=== PATIENT | female | born 1990 | race Two or more races ===

== ENCOUNTER 2016-11-08 21:24 | Observation (INO) | payer MEDICAID, OTHER ==
[2016-11-08 22:55] LABS: ABSOLUTE EOSINOPHILS # (AUTO) 0.2 10^3/uL (0.0-0.6); ABSOLUTE LYMPHOCYTES (AUTO) 3.2 10^3/uL (0.5-4.7); ABSOLUTE MONOCYTES (AUTO) 0.8 10^3/uL (0.1-1.4); ABSOLUTE NEUT (AUTO) 6.2 10^3/uL (1.7-8.2); BASOPHILS % (AUTO) 0.4 % (0-2); HEMATOCRIT 38.9 % (36.0-47.0); HEMOGLOBIN 12.8 g/dL (12.0-15.5); HGB HCT DIFFERENCE -0.5; LYMPHOCYTES % (AUTO) 30.9 % (13-45); MEAN CORPUSCULAR HEMOGLOBIN 30.8 pg (27.0-33.4); MEAN CORPUSCULAR HGB CONC 32.9 g/dL (32.0-36.0); MEAN CORPUSCULAR VOLUME 94 fl (80-97); MONOCYTES % (AUTO) 7.4 % (3-13); RED BLOOD COUNT 4.16 10^6/uL (3.72-5.28); RED CELL DISTRIBUTION WIDTH 12.4 % (11.5-14.0); SEGMENTED NEUTROPHILS % (AUTO) 59.3 % (42-78); WHITE BLOOD COUNT 10.4 10^3/uL (4.0-10.5)
[2016-11-08 23:00] LABS: APPEARANCE,URINE SLIGHTLY-CLOUDY; BILIRUBIN,URINE NEGATIVE (NEGATIVE); GLUCOSE, URINE NEGATIVE (NEGATIVE); KETONES,URINE NEGATIVE (NEGATIVE); LEUKOCYTE ESTERASE,URINE SMALL (NEGATIVE); NITRITE,URINE NEGATIVE (NEGATIVE); PROTEIN,URINE NEGATIVE (NEGATIVE); URINE SPECIFIC GRAVITY 1.018; UROBILINOGEN,URINE NEGATIVE mg/dL (<2.0)
[2016-11-08] MEDS ORDERED: ONDANSETRON 4 MG TAB.RAPDIS PO ONE (23:02)
--- NOTE | 2016-11-08 23:04 | ER Document Report ---
ED Medical Screen (RME) - General Chief Complaint: Abdominal Pain Stated Complaint: ABDOMINAL PAIN Time Seen by Provider: 11/08/16 23:02 Notes: 26-year-old female, chief complaint of worsening right lower quadrant pain since this morning, states she has had an ovarian cyst before and this does not feel the same, it is higher up, pain is worsened and now she is nauseated. She denies vomiting, fever, she had a normal bowel movement earlier, she denies vaginal discharge or bleeding. She is on Depo. TRAVEL OUTSIDE OF THE [place] IN LAST 30 DAYS: No - Related Data Allergies/Adverse Reactions: No Known Allergies Allergy (Verified 01/13/12 11:09) Past Medical History - Past Medical History Cardiac Medical History: Denies: Hx Coronary Artery Disease, Hx Heart Attack, Hx Hypertension Pulmonary Medical History: Denies: Hx Asthma, Hx Bronchitis, Hx COPD, Hx Pneumonia Neurological Medical History: Denies: Hx Cerebrovascular Accident, Hx Seizures Renal/ Medical History: Denies: Hx Peritoneal Dialysis Musculoskeltal Medical History: Reports Hx Arthritis - RA Past Surgical History: Denies: Hx Hysterectomy, Hx Pacemaker - Immunizations Hx Diphtheria, Pertussis, Tetanus Vaccination: Yes - 2003 Physical Exam - Vital signs Vitals: Temp Pulse Resp BP Pulse Ox 98.5 F 80 18 108/57 L 100 11/08/16 21:50 11/08/16 21:50 11/08/16 21:50 11/08/16 21:50 11/08/16 21:50 - Abdominal Tenderness: Tender - very tender in RLQ, less so in pelvic area, although limited by sitting position, Guarding Course - Re-evaluation Re-evalutation: 11/08/16 23:04 I have greeted and performed a rapid initial assessment of this patient. A comprehensive ED assessment and evaluation of the patient, analysis of test results and completion of the medical decision making process will be conducted by additional ED providers. - Vital Signs Vital signs: Temp Pulse Resp BP Pulse Ox 98.5 F 80 18 108/57 L 100 11/08/16 21:50 11/08/16 21:50 11/08/16 21:50 11/08/16 21:50 11/08/16 21:50 - Laboratory Result Diagrams: 11/08/16 22:40 11/08/16 22:40 Laboratory results interpreted by me: 11/08/16 22:40 Ur Leukocyte Esterase SMALL H
[2016-11-08 23:18] LABS: ALANINE AMINOTRANSFERASE 31 U/L (9-52); ALBUMIN 4.6 g/dL (3.5-5.0); ALKALINE PHOSPHATASE 60 U/L (38-126); ANION GAP 13 (5-19); ASPARTATE AMINO TRANSFERASE 18 U/L (14-36); BILIRUBIN,DIRECT 0.2 mg/dL (0.0-0.4); BILIRUBIN,TOTAL 0.8 mg/dL (0.2-1.3); BLOOD UREA NITROGEN 9 mg/dL (7-20); CALCIUM 10.6 mg/dL (8.4-10.2); CARBON DIOXIDE 21 mmol/L (22-30); CHLORIDE 108 mmol/L (98-107); CREATININE RESULT 0.57 mg/dL (0.52-1.25); GLUCOSE 83 mg/dL (75-110); LIPASE 32.3 U/L (23-300); POTASSIUM 3.7 mmol/L (3.6-5.0); SODIUM 141.8 mmol/L (137-145); TOTAL PROTEIN 8.1 g/dL (6.3-8.2)
[2016-11-09] MEDS ORDERED: NORMAL SALINE 1000 ML 1,000 ML IV ONE (01:32)
[2016-11-09] MEDS ORDERED: MORPHINE SULFATE 10 MG/ML INJ IV ONE ×2 (01:32→05:31)
--- NOTE | 2016-11-09 01:34 | ER Document Report ---
ED GI/ - General Chief Complaint: Abdominal Pain Stated Complaint: ABDOMINAL PAIN Time Seen by Provider: 11/08/16 23:02 Notes: Patient is a 26-year-old female that comes to the ED with chief complaint of worsening right lower quadrant pain since this morning, states she has had an ovarian cyst before and this does not feel the same, it is higher up, pain is worsened and now she is nauseated. Not able to eat since breakfast. She denies vomiting, fever, she had a normal bowel movement earlier, she denies vaginal discharge or bleeding. She is on Depo, takes no other meds. TRAVEL OUTSIDE OF THE [place] IN LAST 30 DAYS: No - Related Data Allergies/Adverse Reactions: No Known Allergies Allergy (Verified 01/13/12 11:09) Past Medical History - General Information source: Patient - Social History Smoking Status: Never Smoker Frequency of alcohol use: None Drug Abuse: None Lives with: Family Family History: Reviewed & Not Pertinent - Past Medical History Cardiac Medical History: Denies: Hx Coronary Artery Disease, Hx Heart Attack, Hx Hypertension Pulmonary Medical History: Denies: Hx Asthma, Hx Bronchitis, Hx COPD, Hx Pneumonia Neurological Medical History: Denies: Hx Cerebrovascular Accident, Hx Seizures Renal/ Medical History: Reports: Hx Ovarian Cysts. Denies: Hx Peritoneal Dialysis Musculoskeltal Medical History: Reports Hx Arthritis - RA Surgical Hx: Negative Past Surgical History: Denies: Hx Hysterectomy, Hx Pacemaker - Immunizations Hx Diphtheria, Pertussis, Tetanus Vaccination: Yes - 2003 Review of Systems - Review of Systems Constitutional: No symptoms reported EENT: No symptoms reported Cardiovascular: No symptoms reported Respiratory: No symptoms reported Gastrointestinal: See HPI Genitourinary: No symptoms reported Female Genitourinary: No symptoms reported Musculoskeletal: No symptoms reported Skin: No symptoms reported Hematologic/Lymphatic: No symptoms reported Neurological/Psychological: No symptoms reported Physical Exam - Vital signs Vitals: Temp Pulse Resp BP Pulse Ox 98.5 F 80 18 108/57 L 100 11/08/16 21:50 11/08/16 21:50 11/08/16 21:50 11/08/16 21:50 11/08/16 21:50 Interpretation: Normal - General General appearance: Anxious In distress: Mild - patient appears uncomfortable - HEENT Head: Normocephalic, Atraumatic Eyes: Normal Pupils: PERRL - Respiratory Respiratory status: No respiratory distress Chest status: Nontender Breath sounds: Normal Chest palpation: Normal - Cardiovascular Rhythm: Regular Heart sounds: Normal auscultation Murmur: No - Abdominal Inspection: Normal Distension: No distension Bowel sounds: Normal Tenderness: Tender, McBurney's point - Tender specifically at McBurney's point with guarding, the remaining abdomen is completely benign Organomegaly: No organomegaly - Back Back: Normal, Nontender. No: Tender, Vertebra tenderness - Extremities General upper extremity: Normal inspection, Nontender, Normal color, Normal ROM , Normal temperature General lower extremity: Normal inspection, Nontender, Normal color, Normal ROM , Normal temperature, Normal weight bearing. No: Citlalli's sign - Neurological Neuro grossly intact: Yes Cognition: Normal Orientation: AAOx4 Rydal Coma Scale Eye Opening: Spontaneous Hserri Coma Scale Verbal: Oriented Rydal Coma Scale Motor: Obeys Commands Sherri Coma Scale Total: 15 Speech: Normal Motor strength normal: LUE, RUE, LLE, RLE Sensory: Normal - Psychological Associated symptoms: Normal affect, Normal mood - Skin Skin Temperature: Warm Skin Moisture: Dry Skin Color: Normal Course - Re-evaluation Re-evalutation: On examination, presentation, and abdominal tenderness is very suggestive of acute appendicitis. Location does not appear to be ovarian cyst in nature. CAT scan was ordered from triage. CBC unremarkable, chemistry unremarkable, urine unremarkable. CT showing evidence for early acute appendicitis which is consistent with patient's presentation. Patient having more pain again, will be given another dose of morphine, Unasyn, IV fluids, kept n.p.o., will discuss with surgeon. Discussed with Dr. Castillo. 11/09/16 06:[address] 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 - Vital Signs Vital signs: Temp Pulse Resp BP Pulse Ox 98.5 F 80 16 93/51 L 99 11/08/16 21:50 11/08/16 21:50 11/09/16 07:16 11/09/16 07:15 11/09/16 07:16 - Laboratory Result Diagrams: 11/08/16 22:40 11/08/16 22:40 Laboratory results interpreted by me: 11/08/16 11/08/16 22:40 22:40 Chloride 108 H Carbon Dioxide 21 L Calcium 10.6 H Ur Leukocyte Esterase SMALL H Discharge - Discharge Clinical Impression: Right lower quadrant pain Acute appendicitis Qualifiers: Acute appendicitis type: other Qualified Code(s): K35.89 - Other acute appendicitis Disposition: ADMITTED INPATIENT Admitting Provider: Surgicalist Unit Admitted: Surgical Floor
--- NOTE | 2016-11-09 02:25 | RADIOLOGY REPORT (SQ) ---
EXAM DESCRIPTION: CT ABD/PELVIS WITH IV ORAL COMPLETED DATE/TIME: 11/09/2016 1:57 am REASON FOR STUDY: RLQ pain COMPARISON: CT abdomen and pelvis 09/04/2015. TECHNIQUE: CT scan of the abdomen and pelvis performed using helical scanning technique with dynamic intravenous contrast injection and with oral contrast. Images reviewed with lung, soft tissue, and b one windows. Reconstructed coronal and sagittal MPR images reviewed. Delayed images for evaluation of the urinary system also acquired. All images stored on PACS. All CT scanners at this facility use dose modulation, iterative reconstruction, and/or weight based d osing when appropriate to reduce radiation dose to as low as reasonably achievable (ALARA). [facility]: Dose Right [facility]: CareDose [facility]: Dose Right [facility]: Teradose 4D [facility]: Pixowl CONTRAST TYPE AND DOSE: contrast/concentration: Isovue 370.00 mg/ml; Total Contrast Delivered: 58.0 ml; Total Saline Delivered: 55.0 ml RENAL FUNCTION: None required. The patient is less than 50 years old. RADIATION DOSE: Up-to-date CT equipment and radiation dose reduction techniques were employed. CTDIv ol: 5.2 mGy. DLP: 521 mGy-cm.. LIMITATIONS: None. FINDINGS: LOWER CHEST: No consolidation or pleural effusion. LIVER: Normal size. No masses. No dilated ducts. SPLEEN: Normal size. PANCREAS: No significant calcifications. No adjacent inflammation or peripancreatic fluid collections . Pancreatic duct not dilated. GALLBLADDER: No identified stones by CT criteria. No inflammatory changes to suggest cholecystitis. ADRENAL GLANDS: No significant masses or asymmetry. RIGHT KIDNEY AND URETER: No solid masses. No significant calcifications. No hydronephrosis or hyd roureter. LEFT KIDNEY AND URETER: No solid masses. No significant calcifications. No hydronephrosis or hydr oureter. AORTA AND VESSELS: No abdominal aortic aneurysm. RETROPERITONEUM: No retroperitoneal adenopathy, hemorrhage or masses. BOWEL AND PERITONEAL CAVITY: No small bowel obstruction, the oral contrast has reached the colon. No focal inflammatory changes. No free fluid or free air. APPENDIX: No oral contrast is seen in the appendix. The appendix is mildly dilated to 7 mm with mild periappendiceal soft tissue stranding. No fluid collection to suggest abscess formation at this leander e. PELVIS: The urinary bladder is decompressed. The uterus is present. No free fluid. ABDOMINAL WALL: No hernias. BONES: No acute findings. IMPRESSION: Mildly dilated appendix with mild periappendiceal inflammatory changes, suggestive of ea rly acute appendicitis. COMMENT: Pertinent findings on the imaging study reported as a CRITICAL RESULT to CARLOS YANEZ at 02:16 hrs on 11/09/2016. Category of Critical Result: Mildly dilated appendix with mild periappendiceal inflammatory changes, suggestive of early acute appendicitis. TECHNICAL DOCUMENTATION: JOB ID: [id number] AL-64 Quality ID # [id number]: Final reports with documentation of one or more dose reduction techniques (e.g., Au tomated exposure control, adjustment of the mA and/or kV according to patient size, use of iterative reconstruction technique) 2010 [employer]- All Rights Reserved
[2016-11-09] MEDS ORDERED: NORMAL SALINE 1000 ML 1,000 ML IV PRN (03:18)
[2016-11-09] MEDS ORDERED: AMPICILLIN SOD/SULBACTAM 3 GM VIAL IV ONE (03:18)
[2016-11-09] MEDS ORDERED: SUCCINYLCHOLINE CHLORIDE INJ 200 MG/10 ML VIAL ONE (09:01)
[2016-11-09] MEDS ORDERED: NEOSTIGMINE METHYLSULFATE 10 MG/10 ML VIAL ONE (09:01)
[2016-11-09] MEDS ORDERED: GLYCOPYRROLATE INJ 0.4 MG/2 ML VIAL ONE (09:01)
[2016-11-09] MEDS ORDERED: DEXAMETHASONE SOD PHOSPHATE INJ 4 MG/1 ML VIAL ONE (09:01)
[2016-11-09] MEDS ORDERED: ONDANSETRON HCL INJ/PF 4 MG/2 ML SDV ONE (09:01)
[2016-11-09] MEDS ORDERED: VECURONIUM BROMIDE INJ 10 MG VIAL IV ONE (09:01)
[2016-11-09] MEDS ORDERED: HYDROMORPHONE HCL INJ/PF 2 MG/ML AMPULE IV PRN (09:56)
--- NOTE | 2016-11-09 10:22 | PDOC H&P ---
History of Present Illness Admission Date/PCP: 11/09/16 06:33 Patient complains of: Right lower quadrant pain. History of Present Illness: CHRIS GUTIERREZ is a 26 year old femal e w sandy a on exam in the emergency room chief complaint of worsening right lower quadrant pain since this morning, states she has had an ovarian cyst before and this does not feel the same, it is higher up, pain is worsened and now she is nauseated. She denies vomiting, fever, she had a normal bowel movement earlier, she denies vaginal discharge or bleeding. On examination in the emergency room, she was found to have right lower quadrant tenderness and guarding. CT scan revealed early appendicitis, and surgical admission was recommended. Past Medical History Cardiac Medical History: Denies: Coronary Artery Disease, Myocardial Infarction, Hypertension Pulmonary Medical History: Denies: Asthma, Bronchitis, Chronic Obstructive Pulmonary Disease (COPD), Pneumonia Neurological Medical History: Denies: Seizures Musculoskeltal Medical History: Reports: Arthritis - RA Hematology: Denies: Anemia Past Surgical History Past Surgical History: Denies: Hysterectomy, Pacemaker Social History Lives with: Family Smoking Status: Never Smoker - Advance Directive Resuscitation Status: Full Code Family History Family History: Reviewed & Not Pertinent Parental Family History Reviewed: No Children Family History Reviewed: No Sibling(s) Family History Reviewed.: No Medication/Allergy Home Medications: No Home Medications 11/09/16 Allergies/Adverse Reactions: No Known Allergies Allergy (Verified 01/13/12 11:09) Physical Exam Vital Signs: Temp Pulse Resp BP Pulse Ox 98.3 F 50 L 16 100/52 L 100 11/09/16 08:06 11/09/16 08:06 11/09/16 08:06 11/09/16 08:06 11/09/16 08:06 General appearance: PRESENT: mild distress, thin, well-developed, well-nourished Head exam: PRESENT: atraumatic, normocephalic Eye exam: PRESENT: conjunctiva pink, EOMI, PERRLA Mouth exam: PRESENT: moist, neck supple, tongue midline Neck exam: PRESENT: full ROM, JVD, lymphadenopathy Respiratory exam: PRESENT: clear to auscultation sanjay, unlabored Cardiovascular exam: PRESENT: RRR GI/Abdominal exam: PRESENT: guarding, normal bowel sounds, soft, tenderness - In right lower quadrant Extremities exam: PRESENT: full ROM. ABSENT: calf tenderness Musculoskeletal exam: PRESENT: full ROM Skin exam: PRESENT: intact, warm Results Impressions: Abdomen/Pelvis CT 11/09/16 00:00 IMPRESSION: Mildly dilated appendix with mild periappendiceal inflammatory changes, suggestive of early acute appendicitis. Assessment & Plan - Diagnosis (1) Acute appendicitis Qualifiers: Acute appendicitis type: other Qualified Code(s): K35.89 - Other acute appendicitis - Plan Summary Plan Summary: Laparoscopic appendectomy will be performed today.
[2016-11-09] MEDS ORDERED: BUPIVACAINE HCL 0.5 % INJ/PF 30 ML SDV ONE (11:41)
[2016-11-09] MEDS ORDERED: MIDAZOLAM 2 MG/2 ML INJ ONE (11:43)
[2016-11-09] MEDS ORDERED: FENTANYL CITRATE INJ/PF 250 MCG/5 ML AMPULE ONE (11:44)
[2016-11-09] MEDS ORDERED: PROPOFOL INJ 200 MG/20 ML VIAL IV ONE (11:45)
[2016-11-09] MEDS ORDERED: MORPHINE SULFATE 10 MG/ML INJ ONE (11:46)
[2016-11-09] MEDS ORDERED: ONDANSETRON HCL INJ/PF 4 MG/2 ML SDV IV PRN (12:26)
[2016-11-09] MEDS ORDERED: MEPERIDINE HCL/PF INJ 25 MG/1 ML DISP.SYRIN IV PRN (12:26)
[2016-11-09] MEDS ORDERED: DIPHENHYDRAMINE HCL 50 MG/ML VIAL IV PRN (12:26)
[2016-11-09] MEDS ORDERED: FENTANYL CITRATE INJ/PF 100 MCG/2 ML AMPUL IV PRN ×3 (12:26)
[2016-11-09] MEDS ORDERED: MORPHINE SULFATE 10 MG/ML INJ IV PRN ×2 (12:26→14:32)
[2016-11-09] MEDS ORDERED: PROMETHAZINE HCL INJ 25 MG/1 ML VIAL IV PRN (12:26)
[2016-11-09] MEDS ORDERED: AMPICILLIN SOD/SULBACTAM 1.5 GM VIAL ONE (12:51)
--- NOTE | 2016-11-09 14:01 | Operative Report ---
Operative Report DATE OF SURGERY: 11/09/16 PREOPERATIVE DIAGNOSIS: Acute appendicitis POSTOPERATIVE DIAGNOSIS: Same OPERATION: laparoscopic appendectomy SURGEON: SOLEDAD JACKSON ANESTHESIA: Spinal TISSUE REMOVED OR ALTERED: Appendix. COMPLICATIONS: None ESTIMATED BLOOD LOSS: 1cc
[2016-11-09] MEDS: FENTANYL CITRATE INJ/PF 100 MCG/2 ML AMPUL ONE ×2 (14:08→14:13)
[2016-11-09] MEDS: MORPHINE SULFATE 10 MG/ML INJ ONE ×2 (14:43→14:48)
--- NOTE | 2016-11-09 14:48 | OPERATIVE REPORT E ---
Operative Report NAME: CHRIS GUTIERREZ : 1990 AGE: 26Y DATE OF SURGERY: 11/09/2016 ROOM: 209 PREOPERATIVE DIAGNOSIS: Acute appendicitis. POSTOPERATIVE DIAGNOSIS: Acute appendicitis. PROCEDURE: Laparoscopic appendectomy. SURGEON: SOLEDAD JACKSON M.D. ANESTHESIA: General. INTRAVENOUS FLUIDS: Crystalloid. DRAINS: None. COMPLICATIONS: None. CONDITION: Stable. FINDINGS: The patient had early appendicitis. DESCRIPTION OF PROCEDURE: The patient was brought to the operating suite and placed in the supine position on the operating room table. Monitoring devices were attached. IV sedation was administered followed by the induction of general endotracheal anesthesia. The patient's abdomen was prepped and draped in the usual sterile manner and then a timeout was achieved. After all concurred, Marcaine was injected just below the umbilicus and then a curvilinear incision was made just below the umbilicus through the skin and subcutaneous tissue down to the linea alba. Two 0-Vicryl stay sutures were placed on linea alba and an incision was made between the 2 stay sutures. We then grasped the peritoneum with 2 hemostats, an incision was made between the 2 and the peritoneal cavity was entered. Visual exploration was done to ensure that there were viscera adherent to the anterior abdominal wall and then the Filippo trocar was inserted and secured with two 0-Vicryl stay sutures. Laparoscopic light source and camera were inserted and no injury, bleeding, or trauma was noted. We then placed the 2 remaining trocars, 1 in the mid suprapubic region and 1 in the left lower quadrant, 5 mm each, and the full insufflation of the abdomen with CO2 was reached. We immediately identified the appendix, which had evidence of early appendicitis. An opening was made at the base of the appendix to isolate the mesoappendix. The endoscopic VIKTOR was then used to first amputate the appendix base at the cecum using roberto. We then reloaded the endoscopic VIKTOR with the vascular load and the mesoappendix was divided between the roberto. The appendix was then placed in the Endobag and removed from the abdominal cavity. We saw minimal bleeding from the appendiceal stump and this was cauterized. We irrigated the right lower quadrant and the cecal base with saline and after adequate hemostasis was assured, we removed all trocars under direct vision as we decompressed the abdomen. We then closed the infraumbilical incision using 0-Vicryl continuous suture to close the fascial defect and then, all skin incisions after trocar removal were closed with skin roberto. The patient tolerated the procedure well. Sponge and instrument count was correct and the patient was discharged to the PACU in a stable condition. DICTATING PHYSICIAN: SOLEDAD JACKSON M.D. [id number] PHY#: [id number] ID: [id number] JOB#: [id number] ACCT: [id number] cc:SOLEDAD JACKSON M.D. >
--- NOTE | 2016-11-09 17:32 | PDOC DISCHARGE SUMMARY ---
Discharge Summary (SDC) - Discharge Final Diagnosis: status post laparoscopic appendectomy for acute appendicitis. Date of Surgery: 11/09/16 Discharge Date: 11/09/16 Condition: Good Treatment or Instructions: Follow-up with [facility] in 7-10 days. No lifting, pulling, or pushing greater than 30 pounds, for 2 weeks[address] Do not drink or drive while taking pain medication. Prescriptions: Hydrocodone/Acetaminophen [Chilo 5-325 mg Tablet] 1 tab PO Q4HP PRN #20 tablet PRN Reason: For Pain Scale 4-5 Discharge Diet: Regular Discharge Activity: Activity As Tolerated, Balance Activity w/Rest, No Lifting/ Push/Pulling, Slowly Increase Activity Report the Following to Your Physician Immediately: Nausea, Vomiting, Increase in Pain, Fever over 101 Degrees, Unusual Bleeding, Redness, Swelling, Warmth, Increased Soreness, IV Site Infection Signs
[2016-11-09 17:41] VITALS: BP 101/77
== END 2016-11-09 18:50 | disposition home or self-care (01) ==
LOC: ER 21:24 → INTOOBSV 11-09 06:33 → EH 11-09 06:33 → 2N 11-09 08:01
PROC: 0DTJ4ZZ Resection of Appendix, Percutaneous Endoscopic Approach (ICD-10-PCS; principal; 2016-11-09 12:45)
DX: K35.80 Unspecified acute appendicitis (principal); Z87.42 Personal history of other diseases of the female genital tract
CPT/HCPCS: 96376; 99285; 96361; 96375; 96365; 36415; 83690; 85025; 81025; 80053; 81001; 88304 ×2; 74177; 44970; J2250; J1100; S0119; J3010 ×2; J0295 ×2; J3490; J2270; J1170; J0330; J2405; J7030; J2704; 840; G0378

== ENCOUNTER 2016-11-16 23:06 | Observation (INO) | payer MEDICAID ==
[2016-11-16] MEDS ORDERED: NORMAL SALINE 1000 ML 1,000 ML IV ONE (23:20)
--- NOTE | 2016-11-16 23:26 | ER Document Report ---
ED General - General Chief Complaint: Near Syncope Stated Complaint: POSSIBLE SYNCOPE Time Seen by Provider: 11/16/16 23:14 Notes: Patient is a 26-year-old female presents with complaint of passing out. She felt very unwell for like her heart was racing and felt short of breath. She felt dizzy and than passed out into her boyfriend's arms and than became pale and was not breathing according to the boyfried. When she was in the ambulance she felt that weight gain her heart rate went to 166. They did bring a rhythm strip which showed that she was in SVT. When they struck her for an IV and she would vagal down and broke out of the rhythm. She has no previous history of SVT. No chest pain. No fevers. She has a history of recent surgery for appendicitis. No family history of cardiac disease a young age. TRAVEL OUTSIDE OF THE [place] IN LAST 30 DAYS: No - Related Data Allergies/Adverse Reactions: No Known Allergies Allergy (Verified 01/13/12 11:09) Past Medical History - Social History Smoking Status: Never Smoker Frequency of alcohol use: None Drug Abuse: None Family History: Reviewed & Not Pertinent - Past Medical History Cardiac Medical History: Denies: Hx Coronary Artery Disease, Hx Heart Attack, Hx Hypertension Pulmonary Medical History: Denies: Hx Asthma, Hx Bronchitis, Hx COPD, Hx Pneumonia Neurological Medical History: Denies: Hx Cerebrovascular Accident, Hx Seizures Renal/ Medical History: Reports: Hx Ovarian Cysts. Denies: Hx Peritoneal Dialysis Musculoskeltal Medical History: Reports Hx Arthritis - RA Psychiatric Medical History: Denies: Hx Depression Past Surgical History: Denies: Hx Hysterectomy, Hx Pacemaker - Immunizations Hx Diphtheria, Pertussis, Tetanus Vaccination: Yes - 2003 Review of Systems - Review of Systems Notes: My Normal Review Basic REVIEW OF SYSTEMS: CONSTITUTIONAL : Denies fever, chills, or sweats. Denies recent illness. CARDIOVASCULAR: had some difficulty breathing. palpitations. SVT RESPIRATORY: Denies cough, cold, or chest congestion. Denies shortness of breath, difficulty breathing, or wheezing. GASTROINTESTINAL: recent appendectomy MUSCULOSKELETAL: Denies neck or back pain or joint pain or swelling. SKIN: Denies rash or skin lesions. NEUROLOGICAL: Denies altered mental status or loss of consciousness. Denies headache. Denies weakness or paralysis or loss of use of either side. Denies problems with gait or speech. Denies sensory or motor loss. ALL OTHER SYSTEMS REVIEWED AND NEGATIVE. Physical Exam - Vital signs Vitals: Temp Resp BP Pulse Ox 98.1 F 18 119/71 99 11/16/16 23:09 11/16/16 23:09 11/16/16 23:09 11/16/16 23:09 - Notes Notes: General Appearance: Well nourished, alert, cooperative, no acute distress, no obvious discomfort. Vitals: reviewed, See vital signs table. Head: no swelling or tenderness to the head Eyes: PERRL, EOMI, Conjuctiva clear Mouth: No decreasd moisture Neck: Supple, no neck tenderness, No thyromegaly Lungs: No wheezing, No rales, No rhonci, No accessory muscle use, good air exchange bilaterally. Heart: Normal rate, Regular rythm, No murmur, no rub Abdomen: Normal BS, soft, No rigidity, expected mild soreness to the abdomen being that she had recent abdominal surgery. No redness or erythema coming from postoperative surgical wound sites. Extremities: strength 5/5 in all extremities, good pulses in all extremities, no swelling or tenderness in the extremities, no edema. Skin: warm, dry, appropriate color, no rash Neuro: speech clear, oriented x 3, normal affect, responds appropriately to questions. Course - Re-evaluation Re-evalutation: 11/17/16 03:44 After the boyfriend arrived to get more history and therefore did change my HPI because the boyfriend now tells me that the patient did indeed fully syncopized and also became pale and was not breathing. This seems a little atypical than the typical initial SVT presentation that is typically benign. Typically people do not completely stop breathing. This may have just been her syncopal episode and he mistook her for shallow breathing. Mother concerned is that this is all induced shortly after having recent surgery. I did do a CTA which is negative for PE. I did speak with the hospitalist request a call and speak with the hydraulic rubbish compactor mechanic clinical rehabilitation liaison. I did call Dr. Quick who says that we can keep the patient here that we can admit for observation the patient and he would see her in the morning. I did speak with hospitalist, Dr. Slater who agrees to admit the patient. Dictation of this chart was performed using voice recognition software; therefore, there may be some unintended grammatical errors. - Vital Signs Vital signs: Temp Pulse Resp BP Pulse Ox 98.1 F 15 104/48 L 100 11/16/16 23:09 11/17/16 02:00 11/17/16 00:31 11/17/16 02:00 - Laboratory Result Diagrams: 11/16/16 23:44 11/16/16 23:44 Laboratory results interpreted by me: 11/16/16 11/16/16 23:44 23:44 RBC 3.33 L Hgb 10.4 L Hct 30.6 L Potassium 3.4 L Chloride 110 H - EKG Interpretation by Me Additional EKG results interpreted by me: 11/16/16 23:27 EKG is reviewed and interpreted by me. EKG shows sinus tachycardia with a rate of [address] segment elevation. Slight ST segment depression in inferior leads and lateral precordial leads. Patient does have a incomplete right bundle branch block. OK interval and QTc intervals are within normal range. QRS duration is prolonged. Discharge - Discharge Clinical Impression: SVT (supraventricular tachycardia) Syncope Qualifiers: Syncope type: unspecified Qualified Code(s): R55 - Syncope and collapse Condition: Stable Disposition: ADMITTED OBSERVATION Admitting Provider: Hospitalist
[2016-11-16 23:57] LABS: ABSOLUTE EOSINOPHILS # (AUTO) 0.2 10^3/uL (0.0-0.6); ABSOLUTE LYMPHOCYTES (AUTO) 3.1 10^3/uL (0.5-4.7); ABSOLUTE MONOCYTES (AUTO) 0.8 10^3/uL (0.1-1.4); BASOPHILS % (AUTO) 0.6 % (0-2); EOSINOPHILS % (AUTO) 2.7 % (0-6); HEMATOCRIT 30.6 % (36.0-47.0); HEMOGLOBIN 10.4 g/dL (12.0-15.5); HGB HCT DIFFERENCE 0.6; LYMPHOCYTES % (AUTO) 38.1 % (13-45); MEAN CORPUSCULAR HEMOGLOBIN 31.2 pg (27.0-33.4); MEAN CORPUSCULAR HGB CONC 33.9 g/dL (32.0-36.0); MEAN CORPUSCULAR VOLUME 92 fl (80-97); MONOCYTES % (AUTO) 9.6 % (3-13); RED BLOOD COUNT 3.33 10^6/uL (3.72-5.28); RED CELL DISTRIBUTION WIDTH 12.9 % (11.5-14.0); WHITE BLOOD COUNT 8.2 10^3/uL (4.0-10.5)
--- NOTE | 2016-11-17 00:04 | RADIOLOGY REPORT (SQ) ---
EXAM DESCRIPTION: CHEST SINGLE VIEW COMPLETED DATE/TIME: 11/16/2016 11:52 pm REASON FOR STUDY: SVT COMPARISON: None. EXAM PARAMETERS: NUMBER OF VIEWS: One view. TECHNIQUE: Single frontal radiographic view of the chest acquired. RADIATION DOSE: NA LIMITATIONS: None. FINDINGS: LUNGS AND PLEURA: No opacities, masses or pneumothorax. No pleural effusion. MEDIASTINUM AND HILAR STRUCTURES: No masses. Contour normal. HEART AND VASCULAR STRUCTURES: Heart normal in size. Normal vasculature. BONES: No acute findings. HARDWARE: EKG leads overlie the chest. OTHER: No other significant finding. IMPRESSION: NO ACUTE RADIOGRAPHIC FINDING IN THE CHEST. TECHNICAL DOCUMENTATION: JOB ID: [id number]
[2016-11-17 00:10] LABS: ALANINE AMINOTRANSFERASE 37 U/L (9-52); ALBUMIN 3.8 g/dL (3.5-5.0); ALKALINE PHOSPHATASE 51 U/L (38-126); ANION GAP 10 (5-19); ASPARTATE AMINO TRANSFERASE 19 U/L (14-36); BILIRUBIN,DIRECT 0.2 mg/dL (0.0-0.4); BILIRUBIN,TOTAL 0.6 mg/dL (0.2-1.3); BLOOD UREA NITROGEN 18 mg/dL (7-20); CALCIUM 9.7 mg/dL (8.4-10.2); CARBON DIOXIDE 22 mmol/L (22-30); CHLORIDE 110 mmol/L (98-107); CREATINE KINASE 42 U/L (30-135); CREATININE RESULT 0.56 mg/dL (0.52-1.25); GLUCOSE 88 mg/dL (75-110); MAGNESIUM 1.7 mg/dL (1.6-2.3); POTASSIUM 3.4 mmol/L (3.6-5.0); SODIUM 141.7 mmol/L (137-145); TOTAL PROTEIN 6.7 g/dL (6.3-8.2)
[2016-11-17] MEDS ORDERED: LORAZEPAM INJ 2 MG/1 ML VIAL IV ONE (00:27)
[2016-11-17 00:37] LABS: CREATINE KINASE MB < 0.22 ng/mL (<4.55); TROPONIN I < 0.012 ng/mL
--- NOTE | 2016-11-17 01:24 | RADIOLOGY REPORT (SQ) ---
EXAM DESCRIPTION: CTA CHEST COMPLETED DATE/TIME: 11/17/2016 1:13 am REASON FOR STUDY: syncope. tachycardia COMPARISON: None. TECHNIQUE: CT scan of the chest performed using helical scanning technique with dynamic intravenous contrast injection. Images reviewed with lung, soft tissue and bone windows. Reconstructed coronal and sagittal MPR images reviewed. Additional 3 dimensional post-processing performed to develop Maximal Intensity Projection images (SC P). All images stored on PACS. All CT scanners at this facility use dose modulation, iterative reconstruction, and/or weight based d osing when appropriate to reduce radiation dose to as low as reasonably achievable (ALARA). [facility]: Dose Right [facility]: CareDose [facility]: Dose Right [facility]: Teradose 4D [facility]: [employer] CONTRAST TYPE AND DOSE: contrast/concentration: Isovue 370.00 mg/ml; Total Contrast Delivered: 100.0 ml; Total Saline Delivered: 45.0 ml RENAL FUNCTION: None required. The patient is less than 50 years old. RADIATION DOSE: Up-to-date CT equipment and radiation dose reduction techniques were employed. CTDIv ol: 14.3 mGy. DLP: 518 mGy-cm. . LIMITATIONS: None. FINDINGS: LUNGS AND PLEURA: No masses, infiltrates, pneumothorax. No pleural effusions, calcificati ons. AORTA AND GREAT VESSELS: No aneurysm or dissection. HEART: No pericardial effusion. PULMONARY ARTERIES: No emboli visualized in the main pulmonary arteries or the segmental branches. HILAR AND MEDIASTINAL STRUCTURES: No identified masses or abnormal nodes. HARDWARE: None in the chest. UPPER ABDOMEN: No significant findings. Limited exam. THYROID AND OTHER SOFT TISSUES: No masses. No adenopathy. BONES: No acute or significant finding. Pectus excavatum. 3D MIPS: Confirm above findings. OTHER: No other significant finding. IMPRESSION: NORMAL CTA OF THE CHEST. NO PULMONARY EMBOLI. TECHNICAL DOCUMENTATION: JOB ID: [id number] Quality ID # [id number]: Final reports with documentation of one or more dose reduction techniques (e.g., Au tomated exposure control, adjustment of the mA and/or kV according to patient size, use of iterative reconstruction technique) 2010 [employer]- All Rights Reserved
[2016-11-17] MEDS ORDERED: POTASSIUM CHLORIDE 10 MEQ TABLET.SA PO ONE ×2 (02:30→10:30)
[2016-11-17] MEDS ORDERED: MAGNESIUM SULFATE/D5W 100 ML IV ONE (02:30)
--- NOTE | 2016-11-17 06:42 | PDOC H&P ---
History of Present Illness Admission Date/PCP: 11/17/16 06:23 Patient complains of: palpitations syncope History of Present Illness: CHRIS GUTIERREZ is a 26 year old female with a past medical history of GERD, tobacco dependence and uncomplicated appendectomy 7 days ago. She has been her usual state of health until sensation of feeling unwell, flushed with palpitations followed by episode of passing out. She denies limb shaking or incontinence or injury. She denies previous episode or change in medications. EMS is called and a heart rate is notable at 166 rhythm strips reveal SVT placing an IV results in a vagal reaction and sinus rhythm. She admits to poor appetite and p.o. intake subsequent to her surgery. She denies heat or cold intolerance, bulimia or anorexia, [id number] medications or recreational drugs. No known family history of cardiac disease Past Medical History Cardiac Medical History: Denies: Coronary Artery Disease, Myocardial Infarction, Hypertension Pulmonary Medical History: Denies: Asthma, Bronchitis, Chronic Obstructive Pulmonary Disease (COPD), Pneumonia Neurological Medical History: Denies: Seizures GI Medical History: Reports: Gastroesophageal Reflux Disease Musculoskeltal Medical History: Reports: Arthritis - RA Psychiatric Medical History: Reports: Tobacco Dependency Denies: Depression Hematology: Denies: Anemia Past Surgical History Past Surgical History: Reports: Appendectomy Denies: Hysterectomy, Pacemaker Social History Information Source: Patient Smoking Status: Current Every Day Smoker Cigarettes Packs Per Day: 0.5 Frequency of Alcohol Use: None Hx Recreational Drug Use: No Hx Prescription Drug Abuse: No - Advance Directive Resuscitation Status: Full Code Family History Family History: Reviewed & Not Pertinent Parental Family History Reviewed: Yes Children Family History Reviewed: Yes Sibling(s) Family History Reviewed.: Yes Medication/Allergy Home Medications: Hydrocodone/Acetaminophen [[place] 5-325 mg Tablet] 1 tab PO Q4HP PRN #20 tablet 11/09/16 Allergies/Adverse Reactions: No Known Allergies Allergy (Verified 01/13/12 11:09) Review of Systems Constitutional: ABSENT: chills, fever(s), headache(s), weight gain, weight loss Eyes: ABSENT: visual disturbances Ears: ABSENT: hearing changes Cardiovascular: ABSENT: chest pain, dyspnea on exertion, edema, orthropnea, palpitations Respiratory: ABSENT: cough, hemoptysis Gastrointestinal: ABSENT: abdominal pain, constipation, diarrhea, hematemesis, hematochezia, nausea, vomiting Genitourinary: ABSENT: dysuria, hematuria Musculoskeletal: ABSENT: joint swelling Integumentary: ABSENT: rash, wounds Neurological: ABSENT: abnormal gait, abnormal speech, confusion, dizziness, focal weakness, syncope Psychiatric: ABSENT: anxiety, depression, homidical ideation, suicidal ideation Endocrine: ABSENT: cold intolerance, heat intolerance, polydipsia, polyuria Hematologic/Lymphatic: ABSENT: easy bleeding, easy bruising Physical Exam Vital Signs: Temp Pulse Resp BP Pulse Ox 98.1 F 20 110/76 100 11/17/16 03:00 11/17/16 03:00 11/17/16 03:00 11/17/16 03:00 General appearance: PRESENT: no acute distress, well-developed, well-nourished Head exam: PRESENT: atraumatic, normocephalic Eye exam: PRESENT: conjunctiva pink, EOMI, PERRLA. ABSENT: scleral icterus Ear exam: PRESENT: normal external ear exam Mouth exam: PRESENT: moist, tongue midline Neck exam: ABSENT: carotid bruit, JVD, lymphadenopathy, thyromegaly Respiratory exam: PRESENT: clear to auscultation sanjay. ABSENT: rales, rhonchi, wheezes Cardiovascular exam: PRESENT: RRR. ABSENT: diastolic murmur, rubs, systolic murmur Pulses: PRESENT: normal dorsalis pedis pul Vascular exam: PRESENT: normal capillary refill GI/Abdominal exam: PRESENT: normal bowel sounds, soft. ABSENT: distended, guarding, mass, organolmegaly, rebound, tenderness Rectal exam: PRESENT: deferred Extremities exam: PRESENT: full ROM. ABSENT: calf tenderness, clubbing, pedal edema Neurological exam: PRESENT: alert, awake, oriented to person, oriented to place , oriented to time, oriented to situation, CN II-XII grossly intact. ABSENT: motor sensory deficit Psychiatric exam: PRESENT: flat affect, unusual affect. ABSENT: homicidal ideation, suicidal ideation Skin exam: PRESENT: dry, intact, warm. ABSENT: cyanosis, rash Results Impressions: Chest X-Ray 11/16/16 23:20 IMPRESSION: NO ACUTE RADIOGRAPHIC FINDING IN THE CHEST. Chest/Abdomen CTA 11/17/16 00:27 IMPRESSION: NORMAL CTA OF THE CHEST. NO PULMONARY EMBOLI. Assessment & Plan - Diagnosis (1) SVT (supraventricular tachycardia) Is this a current diagnosis for this admission?: YesPlan: Unclear etiology, EKG suggests partial right bundle branch block and possible left anterior hemiblock with unknown baseline. Should be observed on a monitored bed with echocardiogram and cardiology consult. TSH and BNP pending to follow (2) Syncope Qualifiers: Syncope type: unspecified Qualified Code(s): R55 - Syncope and collapse Is this a current diagnosis for this admission?: YesPlan: Likely vasovagal reaction will monitor with orthostatic blood pressures. (3) Flat affect Is this a current diagnosis for this admission?: YesPlan: Flat affect with poor eye contact concern for bulimia versus anorexia versus substance abuse versus depression. Will obtain labs for follow-up including BMP and phosphorus consider repeat screening for depression. - Time Time Spent: 30 to 50 Minutes
[2016-11-17] MEDS ORDERED: MAGNESIUM HYDROXIDE SUSP 30 ML UDCUP PO PRN (07:25)
[2016-11-17] MEDS ORDERED: ACETAMINOPHEN 325 MG TABLET PO PRN (07:26)
[2016-11-17] MEDS ORDERED: NORMAL SALINE 1000 ML 1,000 ML IV ONE (08:02)
[2016-11-17] MEDS ORDERED: NORMAL SALINE 1000 ML 1,000 ML IV PRN (08:02)
[2016-11-17] MEDS: DOCUSATE SODIUM 100 MG CAPSULE PO SCH ×2 (09:40→17:39)
[2016-11-17] MEDS ORDERED: MEDROXYPROGESTERONE ACET INJ 150 MG/1 ML VIAL IM ONE (10:00)
[2016-11-17] MEDS ORDERED: ASPIRIN 325 MG TABLET, ENT COATED PO SCH (10:00)
[2016-11-17] MEDS ORDERED: IBUPROFEN 800 MG TABLET PO PRN (10:31)
[2016-11-17 10:34] LABS: CREATINE KINASE MB 0.29 ng/mL (<4.55)
[2016-11-17 10:38] LABS: TROPONIN I < 0.012 ng/mL
[2016-11-17] MEDS ORDERED: NORMAL SALINE 1000 ML 3,000 ML IV ONE ×2 (11:09→15:55)
--- NOTE | 2016-11-17 11:18 | XCELERA REPORT ---
[address] [address] Transthoracic Echocardiogram Report Name: CHRIS GUTIERREZ Age: 26 yrs Gender: Female : 1990 Patient Status: Inpatient Patient Location: [id number] Study Date: 11/17/2016 08:49 AM Height: 67 in Weight: 122 lb BSA: 1.6 m2 Procedure: The study was technically difficult with many images being suboptimal in quality. Reason For Study: Syncope, SVT Ordering Physician: EDISON MENDIOLA Performed By: Margarita Clements Interpretation Summary The study was technically difficult with many images being suboptimal in quality. The left ventricle is grossly normal size. The left ventricular ejection fraction is within normal limits. Doppler measurements suggest normal left ventricular diastolic function No regional wall motion abnormalities noted. The right ventricle is not well visualized secondary to technical limitations Right ventricular function cannot be assessed due to poor image quality. Right atrium not well visualized secondary to technical limitations The left atrial size is normal. There is no Doppler evidence for an interatrial shunt There is no mitral valve stenosis. There is a trace amount of mitral regurgitation There is no aortic valve stenosis No aortic regurgitation is present. There is a trace or physiologic amount of tricuspid regurgitation Right ventricular systolic pressure is at the upper limits of normal The aortic root is not well visualized but is probably normal size. The inferior vena cava appeared normal and decreased > 50% with respiration (RAP 5-10 mmHg) There is no pericardial effusion. MMode/2D Measurements \T\ Calculations RVDd: 2.0 cm LVIDd: 4.1 cm FS: 34.1 % Ao root diam: 2.2 cm IVSd: 0.72 cm LVIDs: 2.7 cm EDV(Teich): 76.1 ml LVPWd: 0.74 cmESV(Teich): 27.7 ml Ao root area: 3.8 cm2 EF(Teich): 63.6 % LA dimension: 2.5 cm LVOT diam: 2.0 cm LVOT area: 3.0 cm2 Doppler Measurements \T\ Calculations MV E max sarika: MV P1/2t max sarika: Ao V2 max: LV V1 max P.9 cm/sec 81.4 cm/sec 127.7 cm/sec 3.0 mmHg MV A max sarika: MV P1/2t: 43.8 msec Ao max PG: LV V1 max: 38.0 cm/sec MVA(P1/2t): 5.0 cm2 6.5 mmHg 86.4 cm/sec MV E/A: 2.2 MV dec slope: RAUL(V,D): 2.1 cm2 544.0 cm/sec2 PA V2 max: PI end-d sarika: TR max sarika: 68.6 cm/sec 95.0 cm/sec 217.2 cm/sec PA max PG: TR max P.9 mmHg 18.9 mmHg Left Ventricle The left ventricle is grossly normal size. The left ventricular ejection fraction is within normal limits. Doppler measurements suggest normal left ventricular diastolic function. No regional wall motion abnormalities noted. Right Ventricle The right ventricle is not well visualized secondary to technical limitations. Right ventricular function cannot be assessed due to poor image quality. Atria Right atrium not well visualized secondary to technical limitations. The left atrial size is normal. There is no Doppler evidence for an interatrial shunt. Mitral Valve The mitral valve is grossly normal. There is no mitral valve stenosis. There is a trace amount of mitral regurgitation. Aortic Valve The aortic valve is grossly normal. There is no aortic valve stenosis. No aortic regurgitation is present. Tricuspid Valve The tricuspid valve is not well visualized secondary to technical limitations. There is no tricuspid stenosis. There is a trace or physiologic amount of tricuspid regurgitation. Right ventricular systolic pressure is at the upper limits of normal. Pulmonic Valve The pulmonic valve is not well seen, but is grossly normal. There is no pulmonic valvular stenosis. There is a trace amount of pulmonic regurgitation. Great Vessels The aortic root is not well visualized but is probably normal size. The inferior vena cava appeared normal and decreased > 50% with respiration (RAP 5-10 mmHg). Effusions There is no pericardial effusion. : EDSION MENDIOLA > Augustina Quick
[2016-11-17] MEDS ORDERED: METOPROLOL SUCCINATE 25 MG TAB.SR.24H PO ONE (12:00)
[2016-11-17 12:36] LABS: URINE BARBITURATES SCREEN NEGATIVE; URINE METHADONE SCREEN NEGATIVE; URINE OPIATES LOW NEGATIVE; URINE PHENCYCLIDINE SCREEN NEGATIVE
--- NOTE | 2016-11-17 19:27 | PDOC DISCHARGE SUMMARY ---
General - Admit/Disc Date/PCP Admission Date/Primary Care Provider: 11/17/16 08:04 Discharge Date: 11/17/16 - Discharge Diagnosis (1) Vasovagal syncope Is this a current diagnosis for this admission?: Yes (2) Dehydration Is this a current diagnosis for this admission?: Yes (3) Flat affect Is this a current diagnosis for this admission?: Yes (4) SVT (supraventricular tachycardia) Is this a current diagnosis for this admission?: Yes - Additional Information Resuscitation Status: Full Code Discharge Diet: As Tolerated, Regular Discharge Activity: Activity As Tolerated, Slowly Increase Activity Home Medications: Ferrous Sulfate [Feosol 325 mg Tablet] 325 mg PO DAILY@1200 #30 tablet 11/17/16 Ibuprofen [Motrin 800 mg Tablet] 800 mg PO Q8HP PRN #10 tablet 11/17/16 Medroxyprogesterone Acetate [Depo-Provera] 150 mg IM Q82D 11/17/16 History of Present Illness History of Present Illness: CHRIS GUTIERREZ is a 26 year old female with a past medical history of GERD, tobacco dependence and uncomplicated appendectomy 7 days ago. She has been her usual state of health until sensation of feeling unwell, flushed with palpitations followed by episode of passing out. She denies limb shaking or incontinence or injury. She denies previous episode or change in medications. EMS is called and a heart rate is notable at 166 rhythm strips reveal SVT placing an IV results in a vagal reaction and sinus rhythm. She admits to poor appetite and p.o. intake subsequent to her surgery. She denies heat or cold intolerance, bulimia or anorexia, [id number] medications or recreational drugs. No known family history of cardiac disease Hospital Course Hospital Course: Patient was found to be orthostatic which improved with 6 L IV fluids. Patient' s mother who is a nurse was present at bedside reported that her daughter has not been eating or drinking well for the past week and is to be on Monday. She also reports that her daughter does drink red bull . Patient was seen by cardiologyand they recommend a outpatient Holter monitor. Echocardiogram was performed which was unrevealing. Patient was advised to follow with cardiology for Holter monitor and follow with her primary care physician in regards to her contraception. Patient did have a negative CTA. Patient was also advised to use barrier method. Patient was also advised to follow with surgery as she does have a follow-up surgical appointment tomorrow after her appendectomy. Patient was feeling improved after IV fluids and requesting discharge. Physical Exam Vital Signs: Temp Pulse Resp BP Pulse Ox 98.9 F 74 14 93/42 L 98 11/17/16 15:20 11/17/16 15:20 11/17/16 15:20 11/17/16 15:20 11/17/16 15:20 Intake & Output 11/16/16 11/17/16 11/18/16 06:59 06:59 06:59 Intake Total 240 Output Total 200 Balance 40 Exam: General: Awake alert and oriented x3, no acute respiratory distress HEENT: AT/NC, PERRL, EOMI, oropharynx is moist, pink, no scleral icterus, no conjunctival injection Neck: No JVD, trachea midline Chest: Clear to auscultation bilaterally, no wheezes rhonchi or rales CV: Regular rate and rhythm, normal S1 and S2, no murmur, rub, or gallop Abdomen: Soft, nontender to palpation, nondistended, active bowel sounds; no rebound, rigidity, or guarding Extremities: No cyanosis, clubbing or edema Neuro: Cranial nerves II through XII are grossly intact without focal deficits; awake alert and oriented x3 Psych: Normal mood and affect Results Laboratory Results: 11/17/16 09:20 CK-MB (CK-2) 0.29 Troponin I < 0.012 Impressions: Chest X-Ray 11/16/16 23:20 IMPRESSION: NO ACUTE RADIOGRAPHIC FINDING IN THE CHEST. Chest/Abdomen CTA 11/17/16 00:27 IMPRESSION: NORMAL CTA OF THE CHEST. NO PULMONARY EMBOLI. Qualifiers PATEINT BEING DISCHARGED WITH ANY OF THE FOLLOWING DIAGNOSIS?: No Plan Time Spent: Less than 30 Minutes
--- NOTE | 2016-11-17 20:01 | PDOC CONSULTATION ---
Consultation Consult Date: 11/17/16 Attending physician:: EDISON MENDIOLA Consult reason:: SVT, syncope History of Present Illness Admission Date/PCP: 11/17/16 08:04 Patient complains of: Syncope History of Present Illness: CHRIS GUTIERREZ is a 26 year old female with a past medical history of GERD, tobacco dependence and uncomplicated appendectomy 7 days ago. She has been her usual state of health until sensation of feeling unwell, flushed with palpitations followed by episode of passing out. She denies limb shaking or incontinence or injury. She denies previous episode or change in medications. Patient claims that she did not feel well after meeting with her friends, while coming back through the door in her house, she felt very dizzy week diaphoretic and subsequently passed out. Patient's mother admits to having some jerking motion of her upper extremities. Patient mother claims that she did brief cardiac compressions. EMS is called and a heart rate is notable at 166 rhythm strips reveal SVT placing an IV results in a vagal reaction and sinus rhythm. She admits to poor appetite and p.o. intake subsequent to her surgery. She denies heat or cold intolerance, bulimia or anorexia, [id number] medications or recreational drugs. No known family history of cardiac disease. Patient denied any prior history of syncope or near syncope or prior sustained palpitations. Of note patient's p.o. intake as regards fluid and solid food has been poor for last several days because of dental problems and also being status post appendectomy. Patient did admit to having diaphoretic spells during the passing out spell. Past Medical History Cardiac Medical History: Denies: Coronary Artery Disease, Myocardial Infarction, Hypertension Pulmonary Medical History: Denies: Asthma, Bronchitis, Chronic Obstructive Pulmonary Disease (COPD), Pneumonia Neurological Medical History: Denies: Seizures GI Medical History: Reports: Gastroesophageal Reflux Disease Musculoskeltal Medical History: Reports: Arthritis - RA Psychiatric Medical History: Reports: Tobacco Dependency Denies: Depression Hematology: Denies: Anemia Past Surgical History Past Surgical History: Reports: Appendectomy Denies: Hysterectomy, Pacemaker Social History Information Source: Patient Smoking Status: Current Every Day Smoker Cigarettes Packs Per Day: 0.5 Frequency of Alcohol Use: None Hx Recreational Drug Use: No Drugs: None Hx Prescription Drug Abuse: No - Advance Directive Resuscitation Status: Full Code Surrogate healthcare decision maker:: Patient's mother is the surrogate decision-maker Family History Family History: Reviewed & Not Pertinent Parental Family History Reviewed: Yes Children Family History Reviewed: Yes Sibling(s) Family History Reviewed.: Yes - Negative for premature coronary artery disease or sudden cardiac in the family amongst first degree relatives. Medication/Allergy Home Medications: Ferrous Sulfate [Feosol 325 mg Tablet] 325 mg PO DAILY@1200 #30 tablet 11/17/16 Ibuprofen [Motrin 800 mg Tablet] 800 mg PO Q8HP PRN #10 tablet 11/17/16 Medroxyprogesterone Acetate [Depo-Provera] 150 mg IM Q82D 11/17/16 Allergies/Adverse Reactions: No Known Allergies Allergy (Verified 01/13/12 11:09) Review of Systems Review of Systems: Please see history of present illness and past medical history as wall. Constitutional: No fever or chills reported. Head : No recent chronic headaches, recent head injury. Patient having some dental problem and has painful chewing of food Eyes: No recent eye pain, diplopia, redness, discharge, acute visual changes. Ears: No recent chronic ear pain, acute hearing loss, ear discharge. Oral cavity: No recent ulcerations, bleeding, oral cavity discomfort. Neck: No recent acute neck pain reported. Hematologic: No recent easy bruising or bleeding or hematologic malignancy reported. Lymphatic: No recent lymphatic malignancy, chronic lymphadenopathy reported yet Cardiovascular system review: See history of present illness. Respiratory system review: No recent chronic cough, hemoptysis, blood clots in the lungs reported. Mild Shortness of breath on exertion Gastrointestinal system review: Denied hematemesis, melena, recent change in bowel habits. Status post appendectomy, just about a week ago Genitourinary system review: No recent acute or chronic hematuria, flank pain, UTI etc. reported. Skin system review: Negative for any recent abnormal bruising, no rash, no pruritus reported. Neurologic: No prior history of strokes, mini strokes, seizure disorder. Psychologic: No history of major psychosis or major depression reported. Musculoskeletal: Minor aches and pains reported. No acute joint swelling reported. Endocrine: No recent polyuria, polydipsia, recent heat or cold intolerance. Physical Exam Vital Signs: Temp Pulse Resp BP Pulse Ox 98.9 F 74 14 93/42 L 98 11/17/16 15:20 11/17/16 15:20 11/17/16 15:20 11/17/16 15:20 11/17/16 15:20 Intake & Output 11/16/16 11/17/16 11/18/16 06:59 06:59 06:59 Intake Total 7324 Output Total 200 Balance 7124 Exam: GENERAL: well-nourished and in no acute distress. Alert and oriented x3 HEAD: Atraumatic, normocephalic. EYES: Pupils equal round and reactive to light, extraocular movements intact, sclera anicteric, conjunctiva are normal. ENT: TMs normal, nares patent, oropharynx clear without exudates. Moist mucous membranes. No oral ulcerations or bleeding gums noted NECK: supple without lymphadenopathy. Trachea is central. No cervical or axillary lymphadenopathy noted. Carotids are 2+, JVD WNL LUNGS: Respiration seems nonlabored, no significant accessory muscle action noted. Breath sounds clear to auscultation bilaterally and equal noted. No wheezes rales or rhonchi noted. No significant dullness noted on percussion. CHEST: Palpation of the chest wall shows no significant chest wall tenderness. No other significant abnormalities noted. HEART: [place] [employer], No PSH, 1/6 [place] aortic area, 1/6 [place] systolic murmur mitral area, no rubs, no gallops. ABDOMEN: Soft, no significant tenderness appreciated, normoactive bowel sounds. No guarding, no rebound. No rigidity noted . No masses appreciated. Scar of recent appendectomy noted EXTREMITIES: Pedal pulses are 1-2+, no calf tenderness noted. No clubbing or cyanosis.trace to 1+ pedal edema noted NEUROLOGICAL: Focused neurological exam showed no significant neurologic deficit. Normal speech, no focal weakness appreciated. PSYCH: Normal mood, normal affect. Judgment and insight within normal limits. SKIN: No significant ecchymosis, rash, ulcerations or signs of pruritus noted. MUSCULOSKELETAL EXAM: No significant joint swelling noted. Results Laboratory Results: 11/17/16 09:20 CK-MB (CK-2) 0.29 Troponin I < 0.012 EKG Comments: Sinus rhythm, no acute ST-T wave changes noted. Impressions: Chest X-Ray 11/16/16 23:20 IMPRESSION: NO ACUTE RADIOGRAPHIC FINDING IN THE CHEST. Chest/Abdomen CTA 11/17/16 00:27 IMPRESSION: NORMAL CTA OF THE CHEST. NO PULMONARY EMBOLI. Status: Image reviewed by ak - 2D echo results reviewed. It shows normal LV function. No significant valvular abnormalities noted. Study was however technically difficult Assessment & Plan - Diagnosis (1) SVT (supraventricular tachycardia) Is this a current diagnosis for this admission?: YesPlan: Patient noted to have narrow complex tachycardia. Have started patient on metoprolol 12.5 mg p.o. twice daily. Patient to report any side effects. Will consider event monitoring as an outpatient. (2) Syncope Qualifiers: Syncope type: unspecified Qualified Code(s): R55 - Syncope and collapse Is this a current diagnosis for this admission?: YesPlan: This is most likely related to precipitation of neurocardiogenic syncope brought on by SVT being facilitated by volume depletion. Recommend increasing salt and fluid intake. May consider cardiac monitoring as an outpatient.. (3) Hypotension (arterial) Qualifiers: Hypotension type: unspecified hypotension type Qualified Code(s): I95.9 - Hypotension, unspecified Is this a current diagnosis for this admission?: YesPlan: Most likely related to dehydration from poor p.o. intake. Patient advised to increase salt and fluid intake. Agree with IV fluid therapy. (4) Dehydration Is this a current diagnosis for this admission?: YesPlan: This is related to decreased p.o. intake. Patient being treated with IV fluid therapy. (5) Tobacco abuse Is this a current diagnosis for this admission?: YesPlan: Patient has been advised to quit smoking. Side effects were discussed. - Time Time Spent: 30 to 50 Minutes - CODE STATUS was discussed, patient remains full code. Surrogate decision-maker patient's mother. Multiple medical problems were addressed. More than 50% of the time spent coordinating care, discussing management plans with involved caregivers. Management plans discussed with involved personnels. Medical decision making was of moderate to high complexity , patient's has multiple comorbidities. Medications reviewed and adjusted accordingly: Yes
[2016-11-17 20:25] VITALS: BP 86/35
[2016-11-17] MEDS ORDERED: METOPROLOL SUCCINATE 25 MG TAB.SR.24H PO SCH (22:00)
--- NOTE | 2016-11-18 06:02 | EKG REPORT ---
SEVERITY:- ABNORMAL ECG - SINUS RHYTHM NONSPECIFIC INTRAVENTRICULAR CONDUCTION DELAY : Confirmed by: Anna Giron MD 18-Nov-2016 06:01:32
--- NOTE | 2016-11-18 06:02 | EKG REPORT ---
SEVERITY:- ABNORMAL ECG - SINUS TACHYCARDIA PROBABLE LEFT ATRIAL ABNORMALITY IVCD, CONSIDER ATYPICAL RBBB : Confirmed by: Anna Giron MD 18-Nov-2016 06:01:41
--- NOTE | 2016-11-18 06:02 | EKG REPORT ---
SEVERITY:- BORDERLINE ECG - SINUS RHYTHM BORDERLINE T ABNORMALITIES, ANTERIOR LEADS : Confirmed by: Anna Giron MD 18-Nov-2016 06:01:28
[2016-11-18] MEDS ORDERED: FERROUS SULFATE 325 MG TABLET PO SCH (12:00)
== END 2016-11-17 20:59 | disposition home or self-care (01) ==
LOC: ER 23:06 → UNDOADMOB 11-17 06:23 → EH 11-17 06:23 → 4N 11-17 06:34 → EH 11-17 06:34 → 4N 11-17 08:04
PROVIDERS: ADMIT Internal Medicine; ATTEND Internal Medicine
DX: R55 Syncope and collapse (principal); E86.0 Dehydration; I47.1 Supraventricular tachycardia; R46.89 Other symptoms and signs involving appearance and behavior; F17.210 Nicotine dependence, cigarettes, uncomplicated; I95.9 Hypotension, unspecified; K08.89 Other specified disorders of teeth and supporting structures; Z90.49 Acquired absence of other specified parts of digestive tract
CPT/HCPCS: 93005 ×2; 99285; 96361; 96375; 96365; 36415 ×2; 82553 ×2; 82550; 83735; 84443; 84703; 85025; 85652; 80053; 84484 ×2; 80307; 83880; 93306; 71010; 71275; 93010 ×2; J2060; J3475; J7030 ×2; G0378

== ENCOUNTER → 2017-03-08 | Outpatient (CLI) | payer MEDICAID ==
--- NOTE | 2017-03-08 14:18 | RADIOLOGY REPORT (SQ) ---
EXAM DESCRIPTION: CT ABD/PELVIS WITH IV ORAL COMPLETED DATE/TIME: 03/08/2017 10:27 am REASON FOR STUDY: UNSPEC ABD PAIN (R10.9) R10.9 UNSPECIFIED ABDOMINAL PAIN COMPARISON: Comparison CT abdomen pelvis 11/09/2016, 09/04/2015 TECHNIQUE: CT scan of the abdomen and pelvis performed using helical scanning technique with dynamic intravenous contrast injection. Patient drank oral contrast. Images reviewed with lung, soft tissue , and bone windows. Reconstructed coronal and sagittal MPR images reviewed. Delayed images for evalua tion of the urinary system also acquired. All images stored on PACS. All CT scanners at this facility use dose modulation, iterative reconstruction, and/or weight based d osing when appropriate to reduce radiation dose to as low as reasonably achievable (ALARA). [facility]: Dose Right [facility]: CareDose [facility]: Dose Right [facility]: Teradose 4D [facility]: [employer] Systems CONTRAST TYPE AND DOSE: contrast/concentration: Isovue 370.00 mg/ml; Total Contrast Delivered: 61.0 ml; Total Saline Delivered: 65.0 ml RENAL FUNCTION: Creatinine 0.7 RADIATION DOSE: Up-to-date CT equipment and radiation dose reduction techniques were employed. CTDIv ol: 3.4 - 4.0 mGy. DLP: 347 mGy-cm.. LIMITATIONS: None. FINDINGS: LOWER CHEST: No significant findings. No nodules or infiltrates. LIVER: Normal size. No masses. No dilated ducts. SPLEEN: Normal size. No focal lesions. PANCREAS: No masses. No significant calcifications. No adjacent inflammation or peripancreatic fluid collections. Pancreatic duct not dilated. GALLBLADDER: No identified stones by CT criteria. No inflammatory changes to suggest cholecystitis. ADRENAL GLANDS: No significant masses or asymmetry. RIGHT KIDNEY AND URETER: No solid masses. No significant calcifications. No hydronephrosis or hyd roureter. LEFT KIDNEY AND URETER: No solid masses. No significant calcifications. No hydronephrosis or hydr oureter. AORTA AND VESSELS: No aneurysm. No dissection. Renal arteries, SMA, celiac without stenosis. RETROPERITONEUM: No retroperitoneal adenopathy, hemorrhage or masses. BOWEL AND PERITONEAL CAVITY: No masses or inflammatory changes. No free fluid or peritoneal masses. APPENDIX: Surgically absent PELVIS: No mass. No free fluid. Normal bladder. ABDOMINAL WALL: No masses. No hernias. BONES: No significant or acute findings. OTHER: No other significant finding. IMPRESSION: NO SIGNIFICANT OR ACUTE FINDING IN THE ABDOMEN OR PELVIS ON CT SCAN WITH IV CONTRAST. TECHNICAL DOCUMENTATION: JOB ID: [id number] Quality ID # [id number]: Final reports with documentation of one or more dose reduction techniques (e.g., Au tomated exposure control, adjustment of the mA and/or kV according to patient size, use of iterative reconstruction technique) 2010 [employer]- All Rights Reserved
== END ==
LOC: RAD 09:40
PROVIDERS: ATTEND Nurse Practitioner
DX: R10.9 Unspecified abdominal pain (principal)
CPT/HCPCS: 74177; 82565